=== PATIENT | male | born 1960 | race Caucasian/White ===

== ENCOUNTER 2024-09-12 15:56 | Emergency (ER) | payer BC ==
[~2024-09-12] VITALS: Ht 182.9 cm; Wt 85.0 kg
[2024-09-12 16:12] VITALS: TEMP 96.7
[2024-09-12] MEDS ORDERED: LIDOcaine 5% patch TP SCH (16:25)
[2024-09-12] MEDS: HYDROcodone/acetaminophen 5mg/325mg tablet PO ONE (17:40)
[2024-09-12] MEDS: LIDOcaine 5% patch TP ONE ×2 (17:40→18:30)
[2024-09-12] MEDS: ketorolac trometh 15mg/ml vial 15 MG/ML ML IM ONE (17:59)
--- NOTE | 2024-09-12 18:12 | Physician Documentation ---
History of Present Illness ~ Chief Complaint: Chest Pain Stated Complaint: RIB PAIN Time Seen by MD: 17:48 HPI 63-year-old male presents after injuring his left upper ribs this afternoon. He states he thinks he broke a couple of ribs. Denies shortness of breath but reports cough. Day of Onset: September 12, 2024 Allergies: Coded Allergies: No Known Allergies (Unverified , 09/12/24) Active Prescriptions See Medication Reconciliation Form. Medication Reconciliation Scheduled Lidocaine (Lidoderm), 1 PATCH TOP DAILY Review of Systems All Other Systems at this time: Reviewed and Negative Physical Exam Vital Signs: Temperature: 96.7, Source: Oral, Heart Rate: 63, Respiratory Rate: 16, BP: 135/91, Pulse Oximetry: 98, Weight: 85.000 Physical Exam General: Alert, no apparent distress. Chest: No accessory muscle use. tender to the left intercostals via palpation Psychiatric: Normal mood and affect. Skin: Normal color, warm and dry. No edema, no ecchymosis. Progress Results/Orders Results/Orders Completed Orders - BO DE LA GARZA NP Ketorolac Trometh 15mg/Ml Vial (Toradol (09/12/24 17:55) Lidocaine 5% Patch (Lidoderm 5% Patch) (09/12/24 18:25) Medications Received in ER Medications (Trade) Dose Ordered Sig/Rima Route PRN Reason Start Time Stop Time Status Last Admin Dose Admin ([place] 5/325mg tablet) 2 tab ONCE ONCE PO 09/12/24 16:25 09/12/24 16:31 DC 09/12/24 17:40 2 TAB (Lidoderm 5% Patch) 1 patch ONCE ONCE TP 09/12/24 16:25 09/12/24 16:31 DC 09/12/24 17:40 1 PATCH (Toradol injection) 15 mg ONCE ONCE IM 09/12/24 17:55 09/12/24 17:56 DC 09/12/24 17:59 15 MG Vital Signs 09/12/24 09/12/24 09/12/24 09/12/24 16:12 17:40 17:42 17:59 Temp 96.7 Pulse 63 Resp 18 16 16 16 B/P (MAP) 135/91 Pulse Ox 98 Medical Decision Making Findings Suspecting of the chest wall contusion based on my examination of patient's chest x-rays do not see any acute fractures. Treated him for pain while in the ED. Differential Dx:Considerations: Include: Chest wall contusion, Flail chest, Myocardial contusion, Pneumothorax, Pulmonary contusion, Rib fracture, Renal contusion, Splenic fracture, Tension pneumothorax, Other Departure Disposition: 01 HOME / SELF CARE / HOMELESS Impression: Primary Impression: Tenderness of chest wall Additional Impression: Chest wall pain Condition: Stable Discharge Instructions: Chest Wall Pain Referrals: NO PRIMARY CARE PROVIDER (PCP) Prescriptions Hydrocodone Bit/Acetaminophen 5/325 MG ([place] 5/325 MG) 5 Mg/325 Mg Tablet 1 TAB PO Q6H PRN for pain, #14 TAB Prov: BO DE LA GARZA NP 09/12/24 Lidocaine (Lidoderm) 5 % Adh..patch 1 PATCH TOP DAILY for 30 Days, #10 PATCH 0 Refills may wear up to 12 hours Prov: BO DE LA GARZA NP 09/12/24 Education Educated: Patient Educated regarding: diagnosis Signature Scribe Signature: r Attestation: The note accurately reflects work and decisions made by me.Bo Gann NP 09/12/24 18:21 BO DE LA GARZA NP September 12, 2024 18:12
[2024-09-12] MEDS ORDERED: LIDO700A32 TOP (18:22)
[2024-09-12] MEDS ORDERED: HYDR-3965 PO (18:29)
[2024-09-12 18:37] VITALS: BP 126/86; PULSE 60; RESP 16; O2SAT 98
--- NOTE | 2024-09-12 18:50 | RADIOLOGY REPORT ---
CHEST RADIOGRAPH Indication: CHEST PAIN AFTER FALL Technique: Single frontal view of the chest 4 views of left ribs available for evaluation Comparison: None FINDINGS: Lines and Tubes: None Lungs: No focal consolidation. Pleura: No effusion. No pneumothorax. Cardiomediastinal contours: Unremarkable Bones: No acute osseous abnormality. IMPRESSION: No acute cardiopulmonary disease.
== END 2024-09-12 18:39 | disposition home or self-care (01) ==
LOC: ER 15:57
DX: R07.81 Pleurodynia (principal)
CPT/HCPCS: 71100; 96372; 99284; J1885